=== PATIENT | female | born 1950 | race Caucasian/White ===

== ENCOUNTER 2019-03-26 08:26 | Day surgery (SDC) | payer OTHER ==
[~2019-03-26] VITALS: Ht 154.9 cm; Wt 88.6 kg
[~2019-03-26 08:26] MED LIST: Cartia Xt180 MG PO; LEVSOD50 PO; LOSA50 PO; TRAZ100 PO
== END 2019-03-26 11:54 | disposition home or self-care (01) ==
LOC: ORSCSDS 08:26
PROVIDERS: Podiatrist Foot & Ankle Surgery
PROC: 0QBP0ZZ Excision of Left Metatarsal, Open Approach (ICD-10-PCS; principal; 2019-03-26 10:00)
DX: M20.22 Hallux rigidus, left foot (principal); M79.672 Pain in left foot; I10 Essential (primary) hypertension; E03.9 Hypothyroidism, unspecified; E66.01 Morbid (severe) obesity due to excess calories; Z68.36 Body mass index [BMI] 36.0-36.9, adult; Z79.899 Other long term (current) drug therapy
CPT/HCPCS: J0171; J0690; J1100; J2001; J2250; J2405; J2704; J3010; J7120

== ENCOUNTER → 2019-04-29 | Outpatient (CLI) | payer OTHER ==
[2019-05-01 15:09] LABS: HPV 16 Negative (Negative); HPV 18 Negative (Negative); HPV OTHER HR TYPES Negative (Negative)
== END ==
LOC: LAB SHORT 19:13 → LAB 19:13
PROVIDERS: Family Medicine
DX: Z01.419 Encounter for gynecological examination (general) (routine) without abnormal findings (principal)
CPT/HCPCS: 87624; G0123

== ENCOUNTER 2022-12-28 11:39 | Emergency (ER) | payer OTHER ==
[~2022-12-28] VITALS: Ht 160 cm; Wt 63.5 kg
[~2022-12-28 11:39] MED LIST changes: +AZIT250 PO; +HYDR1TAB94 PO
[2022-12-28 11:42] VITALS: BP 124/90
[2022-12-28] MEDS ORDERED: EUTHYROX50 MC1 (11:45)
[2022-12-28] MEDS ORDERED: ESCI10 PO (11:45)
== END 2022-12-28 13:30 | disposition home or self-care (01) ==
LOC: ER 11:39
DX: S01.01XA Laceration without foreign body of scalp, initial encounter (principal); V49.9XXA Car occupant (driver) (passenger) injured in unspecified traffic accident, initial encounter; E03.9 Hypothyroidism, unspecified; Z79.899 Other long term (current) drug therapy
CPT/HCPCS: 70450; 90471; 90715; 99285-25

== ENCOUNTER → 2023-10-08 | Outpatient (CLI) | payer OTHER ==
[~2023-10-08] MED LIST changes: +ESCI10 PO; +EUTHYROX50 MC1
[2023-10-08 17:17] LABS: Source, Urine Clean Catch
[2023-10-08 18:47] LABS: Bilirubin, Urine Neg (Neg); Blood, Urine 3+ (Neg); Color, Urine Yellow (P-Yellow); Glucose Qualitative, Urine Neg (Neg); Ketones, Urine Neg (Neg); Leukocyte Esterase, Urine 1+ (Neg); Nitrite, Urine Neg (Neg); Protein, Urine Neg (Neg); Urobilinogen, Urine NORM (Normal)
[2023-10-08 19:03] LABS: Appearance, Urine Hazy (Clear); Squamous Epithelial Cells Rare /hpf (Few)
[2023-10-08 19:04] LABS: Bacteria Mod /hpf; Mucus Light (0-Heavy)
[2023-10-08 20:44] LABS: Bacterial Vaginosis PCR Negative (NEGATIVE); Candida Group, PCR NOT DETECTED (NOT DETECT); Candida glabrata-krusei, PCR NOT DETECTED (NOT DETECT)
== END ==
LOC: LAB 17:14 → LAB SHORT 17:14
PROVIDERS: Obstetrics & Gynecology
DX: N76.0 Acute vaginitis (principal); R30.0 Dysuria
CPT/HCPCS: 81001; 87086; 87481; 87661; 87801

== ENCOUNTER → 2023-10-21 | Outpatient (CLI) | payer OTHER ==
[2023-11-01 08:19] LABS: HPV HIGH RISK BY TMA Not Detected; HPV SOURCE Cervical/Vag
== END ==
LOC: LAB SHORT 17:06 → LAB 17:06
PROVIDERS: Obstetrics & Gynecology
DX: Z01.419 Encounter for gynecological examination (general) (routine) without abnormal findings (principal)
CPT/HCPCS: 87624; G0123

== ENCOUNTER → 2023-10-21 | Outpatient (CLI) | payer OTHER | LOC: LAB SHORT 07:43 → LAB 07:43 | DX: N95.0 Postmenopausal bleeding (principal) | CPT/HCPCS: 88305; 88341; 88342 ==

== ENCOUNTER 2024-01-03 06:35 | Day surgery (SDC) | payer OTHER ==
[2024-01-03] VITALS (11 sets, daily range): BP systolic 136–187; BP diastolic 72–111
[~2024-01-03] VITALS: Ht 152.4 cm; Wt 68.3 kg
[~2024-01-03 06:35] MED LIST changes: +CeFAZolin Sodium 2,000 MG in NS 100 ML IV SCH; -EUTHYROX50 MC1; +EUTHYROX50 MC1 PO; +Lactated Ringer's 1,000 ML IV SCH
--- NOTE | 2024-01-03 07:04 | NUR ---
PATIENT PLACED HER JEWELRY IN A BUTTONED POCKET OF HER COAT AND PLACED UNDER GURNEY FOR SAFE KEEPING DURING SURGERY.
[2024-01-03] MEDS ORDERED: Bupivacaine 0.5% HCl 5 MG/ML 30MLVIAL ONE (07:07)
--- NOTE | 2024-01-03 07:14 | NUR ---
History, Chart, Medications and Allergies reviewed before start of procedure. Patient confirms NPO status and agrees with scheduled surgery.
[2024-01-03] MEDS ORDERED: Midazolam HCl 1MG / ML 2ML Vial IV SCH (07:30)
--- NOTE | 2024-01-03 09:37 | NUR ---
Discharge instructions reviewed with patient. Patient verbalizes understanding. Copy given to patient to take home.
== END 2024-01-03 09:37 | disposition home or self-care (01) ==
LOC: ORSCMMR 06:35 → ORD 07:30 → ORSCMMR 07:30
PROVIDERS: Surgery
PROC: 0JH60WZ Insertion of Totally Implantable Vascular Access Device into Chest Subcutaneous Tissue and Fascia, Open Approach (ICD-10-PCS; principal; 2024-01-03 07:30)
DX: C54.1 Malignant neoplasm of endometrium (principal); I12.9 Hypertensive chronic kidney disease with stage 1 through stage 4 chronic kidney disease, or unspecified chronic kidney disease; N18.9 Chronic kidney disease, unspecified; E03.9 Hypothyroidism, unspecified; Z79.899 Other long term (current) drug therapy
CPT/HCPCS: 77001; C1788; J0690; J1642; J2250; J7120